=== PATIENT | male | born 1985 | race Caucasian/White ===

== ENCOUNTER 2021-06-14 14:52 | Emergency (ER) | payer OTHER ==
[2021-06-14 15:12] VITALS: BP 129/78; PULSE 67; TEMP 99.1; BMI 35.2
== END 2021-06-14 17:05 | disposition home or self-care (01) ==
LOC: JCOVINFU 14:52 → JER 14:52 → JCOVINFU 17:05
DX: R50.9 Fever, unspecified (principal); R05 Cough; Z11.52 Encounter for screening for COVID-19
CPT/HCPCS: 99283-25; C9803; U0003; U0005